=== PATIENT | male | born 1940 | race Caucasian/White ===

== ENCOUNTER 2021-09-06 10:44 | Inpatient (IN) | payer MEDICARE, BC ==
[~2021-09-06] VITALS: Ht 170.2 cm; Wt 73.1 kg
[~2021-09-06 10:44] MED LIST: AMOX TR-K CLV1 EAC4 PO; PREDNISONE10 M1 PO
[2021-09-06 11:31] LABS: HEMOGLOBIN 11.9 gm/dl (14.0-17.5); RED BLOOD COUNT 3.64 M/UL (4.20-5.50); WHITE BLOOD COUNT 11.6 K/UL (4.5-11.0)
[2021-09-06 11:55] LABS: BUN/CREATININE RATIO 13 (0-10)
[2021-09-07 02:53] LABS: HEMOGLOBIN 11.7 gm/dl (14.0-17.5); RED BLOOD COUNT 3.58 M/UL (4.20-5.50); WHITE BLOOD COUNT 12.1 K/UL (4.5-11.0)
[2021-09-07 03:09] LABS: BUN/CREATININE RATIO 15 (0-10)
[2021-09-07] MEDS ORDERED: CEFUROXIME500 MG PO (09:33)
[2021-09-07] MEDS ORDERED: PROAIR HFA8.5 GM INH (09:33)
[2021-09-07] MEDS ORDERED: ATROVENT-HFA12.9 GM INH (09:33)
[2021-09-07] MEDS ORDERED: AZITHROMYCIN500 MG PO (09:33)
== END 2021-09-07 11:57 | disposition home or self-care (01) | DRG 202 ==
LOC: ER1 10:44 → CDU 12:42 → M/S 12:42
PROVIDERS: Nurse Practitioner; Physician Assistant; ADMIT Internal Medicine
DX: J20.9 Acute bronchitis, unspecified (principal); J44.0 Chronic obstructive pulmonary disease with (acute) lower respiratory infection; N17.9 Acute kidney failure, unspecified; Z20.822 Contact with and (suspected) exposure to COVID-19; R00.1 Bradycardia, unspecified; D53.9 Nutritional anemia, unspecified; F17.210 Nicotine dependence, cigarettes, uncomplicated; I12.9 Hypertensive chronic kidney disease with stage 1 through stage 4 chronic kidney disease, or unspecified chronic kidney disease; N18.30 Chronic kidney disease, stage 3 unspecified; Z80.9 Family history of malignant neoplasm, unspecified; Z80.3 Family history of malignant neoplasm of breast; Z80.0 Family history of malignant neoplasm of digestive organs
CPT/HCPCS: 0240U; 71045; 80048; 80053; 82550; 82553; 84484; 85025; 85652; 86140; 93005; 94640; 94664; 94760; 96374; 96375; 99284; J0456; J0696; J7030